=== PATIENT | male | born 1980 | race Caucasian/White ===

== ENCOUNTER 2024-03-15 07:11 | Emergency (ER) | payer OTHER ==
[2024-03-15 07:19] VITALS: RESP 18; TEMP 98.8; BMI 32.9
[2024-03-15] MEDS: SODIUM CHLORIDE 1,000 ML IV STA (08:40)
[2024-03-15 08:45] LABS: BASO % 0.7 % (0-2.0); EOS % 2.2 % (0-4.5); HEMATOCRIT 37.3 % (35.4-49); HEMOGLOBIN 12.2 GM/dL (11.7-16.9); LYMPH % 26.1 % (8-40); MCHC 32.8 g/dl (32.0-35.9); MEAN CELL VOLUME 56.2 fl (80-96); MEAN PLT VOLUME 8.7 fl (7.5-11.1); MONO % 6.5 % (3.8-10.2); NEUT % 64.5 % (42.8-82.8); RBC 6.64 M/mm3 (4.00-5.60); RDW 16.3 % (11.9-15.9); WHITE BLOOD COUNT 6.4 K/mm3 (4.0-10.0)
[2024-03-15 08:48] LABS: MCH 18.4 pg (25.7-33.7)
[2024-03-15 09:02] LABS: POTASSIUM 4.1 mmol/L (3.5-5.1)
[2024-03-15 09:05] LABS: ALBUMIN 4.4 g/dl (3.4-5.0); BLOOD UREA NITROGEN 16.7 mg/dL (7-18); CALCIUM 9.3 mg/dL (8.5-10.1); MAGNESIUM 2.3 mg/dL (1.8-2.4)
[2024-03-15 09:08] LABS: CREATININE 0.9 mg/dL (0.55-1.3)
[2024-03-15 09:11] LABS: TOT PROT 7.1 g/dl (6.4-8.2)
[2024-03-15 09:52] LABS: ANISOCYTOSIS 0; MACROCYTOSIS 0
[2024-03-15 09:53] LABS: PLATELET COUNT 172 10^3/uL (134-434)
[2024-03-15 11:26] VITALS: BP 109/69; PULSE 74
== END 2024-03-15 12:50 | disposition home or self-care (01) ==
LOC: JER 07:11
PROC: 3E0337Z Introduction of Electrolytic and Water Balance Substance into Peripheral Vein, Percutaneous Approach (ICD-10-PCS; principal; 2024-03-15)
DX: R10.31 Right lower quadrant pain (principal); R19.7 Diarrhea, unspecified; R11.0 Nausea; K92.1 Melena
CPT/HCPCS: 36415; 74177-TC; 80053; 82272; 83690; 83735; 85025; 87045; 87046; 87186; 87209; 99285-25; Q9967

== ENCOUNTER 2024-04-05 04:21 | Day surgery (SDC) | payer OTHER ==
[2024-04-04 13:12] VITALS: BMI 32.8
[2024-04-05 10:13] VITALS: RESP 16; TEMP 97.6
[2024-04-05 10:40] VITALS: BP 115/82; PULSE 72
== END 2024-04-05 10:50 | disposition home or self-care (01) ==
LOC: JASU-ENDO 04:21
PROVIDERS: ATTEND Internal Medicine Gastroenterology
PROC: 0DB98ZX Excision of Duodenum, Via Natural or Artificial Opening Endoscopic, Diagnostic (ICD-10-PCS; 2024-04-05)
PROC: 0DB68ZX Excision of Stomach, Via Natural or Artificial Opening Endoscopic, Diagnostic (ICD-10-PCS; 2024-04-05)
PROC: 0DBE8ZX Excision of Large Intestine, Via Natural or Artificial Opening Endoscopic, Diagnostic (ICD-10-PCS; principal; 2024-04-05 10:00)
DX: K29.80 Duodenitis without bleeding (principal); K29.50 Unspecified chronic gastritis without bleeding; K63.89 Other specified diseases of intestine
CPT/HCPCS: 88305-TC; 88342-TC